=== PATIENT | male | born 1945 | race Caucasian/White ===

== ENCOUNTER 2021-09-11 12:39 | Observation (INO) ==
[2021-09-11 13:47] LABS: Basophils % 0.3 %; Eosinophils # 0.2 K/mcL (0.0-0.6); Eosinophils % 2.5 %; Hematocrit 41.3 % (37.5-50.1); Hemoglobin 13.6 g/dL (12.9-16.9); Immature Granulocytes % 0.2 % (0-4); Lymphocytes % 32.1 %; Mean Corpuscular HGB Conc 32.9 g/dL (31.6-35.5); Mean Corpuscular Hemoglobin 29.7 pg (28.0-33.3); Mean Corpuscular Volume 90.2 fL (83.0-100.0); Mean Platelet Volume 10.3 fL (9.4-12.4); Monocytes # 0.5 K/mcL (0.0-1.3); Monocytes % 8.4 %; Neutrophils # 3.6 K/mcL (1.6-8.9); Platelet Count 274 K/mcL (140-400); Red Blood Count 4.58 M/mcL (4.19-5.50); Red Cell Distribution Width 12.8 % (11.5-14.5); Segmented Neutrophils % 56.5 %; White Blood Count 6.3 K/mcL (4.3-11.1)
[2021-09-11] MEDS ORDERED: Aspirin 325 MG TABLET PO ONE (13:48)
[2021-09-11 14:06] LABS: Alanine Aminotransferase 11 Units/L (7-52); Albumin 4.3 g/dL (3.5-5.7); Albumin/Globulin Ratio 1.3 (1.1-2.2); Alkaline Phosphatase 82 Units/L (34-104); Aspartate Amino Transferase 15 Units/L (13-39); BUN/Creatinine Ratio 18 (6-26); Bilirubin,Total 0.7 mg/dL (0.3-1.0); Blood Urea Nitrogen 20 mg/dL (8-23); Calcium 9.5 mg/dL (8.6-10.3); Carbon Dioxide 28 mEq/L (23-29); Chloride 99 mEq/L (98-107); Globulin 3.2 g/dL (2.4-3.5); Glucose 127 mg/dL (70-105); Magnesium 1.8 mg/dL (1.6-2.6); Osmolality,Calculated 290 (280-300); Sodium 138 mEq/L (136-145); Total Protein 7.5 g/dL (6.4-8.9); eGFR For African Americans > 60 (> 60); eGFR For Non-African Americans > 60 (> 60)
[2021-09-11 14:07] LABS: Troponin I < 0.03 ng/mL (< 0.04)
[2021-09-11] MEDS ORDERED: Isovue-370 500 ML BOTTLE IVP ONE ×2 (14:23→16:54)
[2021-09-11] MEDS ORDERED: Naloxone 0.4 MG/ML INJ IVP PRN (16:10)
[2021-09-11] MEDS ORDERED: Melatonin 3 MG TABLET PO PRN (16:10)
[2021-09-11 16:27] LABS: INR 1.2; Prothrombin Time 13.5 Seconds (9.4-12.1)
[2021-09-11] MEDS ORDERED: Perflutren Lipid Microsphere 1.3 ML in 0.9 % Sodium Chloride 8.7 ML IVP PRN (16:54)
[2021-09-11] MEDS ORDERED: *HR* Metoprolol 5 MG/5 ML VIAL IVP ONE (17:00)
[2021-09-11] MEDS: *HR* Heparin 5,000 UNIT/ML VIAL SQ SCH (17:06)
[2021-09-11] MEDS: FLUoxetine 20 MG CAPSULE PO SCH (20:06)
[2021-09-11] MEDS: carvediloL 6.25 MG TABLET PO SCH (20:07)
[2021-09-12 01:48] LABS: Basophils % 0.3 %; Eosinophils # 0.2 K/mcL (0.0-0.6); Eosinophils % 3.4 %; Hematocrit 39.9 % (37.5-50.1); Hemoglobin 13.4 g/dL (12.9-16.9); Immature Granulocytes % 0.3 % (0-4); Lymphocytes # 2.2 K/mcL (0.6-4.6); Lymphocytes % 32.8 %; Mean Corpuscular HGB Conc 33.6 g/dL (31.6-35.5); Mean Corpuscular Hemoglobin 30.5 pg (28.0-33.3); Mean Corpuscular Volume 90.7 fL (83.0-100.0); Mean Platelet Volume 10.3 fL (9.4-12.4); Monocytes # 0.6 K/mcL (0.0-1.3); Monocytes % 9.2 %; Neutrophils # 3.5 K/mcL (1.6-8.9); Platelet Count 261 K/mcL (140-400); Red Cell Distribution Width 12.9 % (11.5-14.5); White Blood Count 6.6 K/mcL (4.3-11.1)
[2021-09-12 02:11] LABS: Alanine Aminotransferase 9 Units/L (7-52); Albumin 4.1 g/dL (3.5-5.7); Albumin/Globulin Ratio 1.4 (1.1-2.2); Alkaline Phosphatase 75 Units/L (34-104); Aspartate Amino Transferase 13 Units/L (13-39); BUN/Creatinine Ratio 19 (6-26); Bilirubin,Total 0.5 mg/dL (0.3-1.0); Blood Urea Nitrogen 21 mg/dL (8-23); Calcium 9.3 mg/dL (8.6-10.3); Carbon Dioxide 28 mEq/L (23-29); Chloride 99 mEq/L (98-107); Chol/HDL Ratio 3.6 (0-4.9); Cholesterol 140 mg/dL (< 200); Glucose 113 mg/dL (70-105); HDL Cholesterol 39 mg/dL (40-59); LDL Cholesterol,Calculated 62 mg/dL (< 100); Osmolality,Calculated 288 (280-300); Potassium 3.8 mEq/L (3.5-5.1); Sodium 137 mEq/L (136-145); Total Protein 7.1 g/dL (6.4-8.9); Triglycerides 196 mg/dL (< 150); eGFR For African Americans > 60 (> 60); eGFR For Non-African Americans > 60 (> 60)
[2021-09-12 03:29] LABS: Estimated Average Glucose 169 mg/dl; Hemoglobin A1C 7.5 %
[2021-09-12] MEDS: *HR* Heparin 5,000 UNIT/ML VIAL SQ SCH (05:36)
[2021-09-12] MEDS: FLUoxetine 20 MG CAPSULE PO SCH (08:11)
[2021-09-12] MEDS: carvediloL 6.25 MG TABLET PO SCH (08:11)
[2021-09-12] MEDS ORDERED: *HR* Metoprolol 5 MG/5 ML VIAL IVP PRN ×2 (08:26→08:30)
[2021-09-12] MEDS ORDERED: Nitroglycerin 0.4 MG TAB.SUBL SL PRN (08:27)
[2021-09-12] MEDS ORDERED: 0.9 % Sodium Chloride 1,000 ML IVC SCH (08:30)
[2021-09-12] MEDS ORDERED: Aspirin 81 MG TAB.CHEW PO SCH (09:00)
[2021-09-12] MEDS ORDERED: allopurinoL 100 MG TABLET PO SCH (09:00)
[2021-09-12] MEDS ORDERED: Losartan/HCTZ 50-12.5 TABLET PO SCH (09:00)
[2021-09-12] MEDS ORDERED: amLODIPine 5 MG TABLET PO SCH (09:00)
[2021-09-12 14:55] VITALS: BP 128/70; PULSE 71; TEMP 98.3; O2SAT 93
== END 2021-09-12 16:44 | disposition home or self-care (01) ==
LOC: EMEROOARM 12:39 → 3BNU 12:39 → SUATTDRO 16:21 → 3BNU 16:37
PROVIDERS: ADMIT Internal Medicine; ATTEND Nurse Practitioner